=== PATIENT | male | born 1985 | race Hispanic/Latino ===

== ENCOUNTER 2020-10-31 09:23 | Inpatient (IN) | payer OTHER, SELFPAY ==
[2020-10-31] MEDS ORDERED: Iopamidol-370 76% 500 ML 1 ML ONE (09:31)
[2020-10-31] MEDS ORDERED: Albuterol 200 PUFF (6.7GM INHALER) ONE (09:49)
[2020-10-31] MEDS ORDERED: Dexamethasone 10 MG/ML VIAL ONE (09:49)
[2020-10-31 09:58] LABS: #Lymphocytes 1.3 thou/uL (1.20-3.40); #Monocytes 0.6 thou/uL (0.11-0.59); #Neutrophils 4.1 thou/uL (1.40-6.50); %Eosinophils 0.4 % (0.0-10.0); %Lymphocytes 21.6 % (21.0-51.0); %Monocytes 9.6 % (0.0-10.0); %Neutrophils 68.3 % (42.0-75.0); Hemoglobin 15.6 g/dL (14.0-18.0); Mean Corpuscular HGB CONC 35.1 g/dL (32.0-36.0); Mean Corpuscular Hemoglobin 32.1 pg (27.0-31.0); Mean Corpuscular Volume 91.5 fL (78.0-98.0); Mean Platelet Volume 8.8 fL (7.4-10.4); Platelet Count 176 thou/uL (130-400); RBC Distribution Width 11.7 % (11.5-14.5); Red Blood Cell (RBC) Count 4.87 mill/uL (4.70-6.10)
[2020-10-31 10:20] LABS: ALT (SGPT) 61 U/L (8-55); AST (SGOT) 74 U/L (5-34); Albumin 4.1 g/dL (3.5-5.0); Alkaline Phosphatase 100 U/L (40-110); Anion Gap 17 mmol/L (10-20); BUN (Urea Nitrogen) 15 mg/dL (8.9-20.6); Bilirubin, Total 1.6 mg/dL (0.2-1.2); Calc. Creatinine Clearance 0 mL/min (70-130); Calcium 9.6 mg/dL (7.8-10.44); Carbon Dioxide 25 mmol/L (22-29); Chloride 94 mmol/L (98-107); Globulin 4.1 g/dL (2.4-3.5); Glucose 256 mg/dL (70-105); Magnesium 2.1 mg/dL (1.6-2.6); Potassium 3.9 mmol/L (3.5-5.1); Protein, Total 8.2 g/dL (6.0-8.3); Sodium 132 mmol/L (136-145)
[2020-10-31] MEDS ORDERED: Enoxaparin Sodium 40 MG/0.4 ML SYRINGE ONE (12:08)
[2020-10-31 14:38] VITALS: BMI 28.1
[2020-10-31] MEDS ORDERED: Ondansetron ODT 4 MG TAB PO PRN (18:00)
[2020-10-31] MEDS ORDERED: Ondansetron PF 4 MG/2 ML Vial IVP PRN (18:00)
[2020-10-31] MEDS ORDERED: REMDESIVIR 200 MG in Sodium Chloride 0.9% 250 ML 210 ML IV SCH (21:00)
[2020-10-31] MEDS: Guaifenesin DM 100-10/5 ML UDCUP PO PRN (21:59)
[2020-10-31] MEDS: Benzonatate 100 MG CAP PO PRN (21:59)
[2020-11-01] MEDS: Guaifenesin DM 100-10/5 ML UDCUP PO PRN ×2 (05:23→22:11)
[2020-11-01] MEDS: Acetaminophen 325 MG TAB PO PRN ×2 (05:33→23:25)
[2020-11-01 06:16] LABS: #Monocytes 0.8 thou/uL (0.11-0.59); #Neutrophils 7.4 thou/uL (1.40-6.50); %Eosinophils 0.5 % (0.0-10.0); %Lymphocytes 11.2 % (21.0-51.0); %Monocytes 8.9 % (0.0-10.0); %Neutrophils 79.4 % (42.0-75.0); Hemoglobin 14.9 g/dL (14.0-18.0); Mean Corpuscular HGB CONC 34.4 g/dL (32.0-36.0); Mean Corpuscular Hemoglobin 31.4 pg (27.0-31.0); Mean Corpuscular Volume 91.5 fL (78.0-98.0); Mean Platelet Volume 8.5 fL (7.4-10.4); Platelet Count 238 thou/uL (130-400); RBC Distribution Width 11.9 % (11.5-14.5); Red Blood Cell (RBC) Count 4.73 mill/uL (4.70-6.10); White Blood Cell (WBC) Count 9.3 thou/uL (4.8-10.8)
[2020-11-01 06:19] LABS: Hemoglobin A1c 8.7 % (4.0-6.0)
[2020-11-01 06:35] LABS: Anion Gap 19 mmol/L (10-20); BUN (Urea Nitrogen) 17 mg/dL (8.9-20.6); Calc. Creatinine Clearance 146 mL/min (70-130); Calcium 9.3 mg/dL (7.8-10.44); Carbon Dioxide 17 mmol/L (22-29); Chloride 100 mmol/L (98-107); Glucose 270 mg/dL (70-105); Potassium 4.5 mmol/L (3.5-5.1); Sodium 131 mmol/L (136-145)
[2020-11-01] MEDS: Enoxaparin Sodium 40 MG/0.4 ML SYRINGE SC SCH (08:07)
[2020-11-01] MEDS ORDERED: Dexamethasone 10 MG in Sodium Chloride 0.9% 50 ML IVPB SCH (09:00)
[2020-11-01] MEDS: methylPREDNISolone Sod Succ/PF 110 MG in Sodium Chloride 0.9% 250 ML 250 ML IVPB SCH ×2 (09:47→12:38)
[2020-11-01] MEDS ORDERED: Sodium Chloride 0.9% 1,000 ML IV SCH (14:00)
[2020-11-01 14:17] LABS: #Lymphocytes 0.8 thou/uL (1.20-3.40); #Monocytes 0.8 thou/uL (0.11-0.59); #Neutrophils 10.3 thou/uL (1.40-6.50); %Basophils 0.1 % (0.0-1.0); %Eosinophils 0.3 % (0.0-10.0); %Lymphocytes 6.3 % (21.0-51.0); %Monocytes 6.7 % (0.0-10.0); %Neutrophils 86.6 % (42.0-75.0); Mean Corpuscular HGB CONC 35.5 g/dL (32.0-36.0); Mean Corpuscular Hemoglobin 32.6 pg (27.0-31.0); Mean Corpuscular Volume 91.7 fL (78.0-98.0); Mean Platelet Volume 8.4 fL (7.4-10.4); Platelet Count 267 thou/uL (130-400); RBC Distribution Width 11.9 % (11.5-14.5); White Blood Cell (WBC) Count 11.9 thou/uL (4.8-10.8)
[2020-11-01] MEDS ORDERED: Dextrose 5% in Water 1,000 ML IV PRN (15:55)
[2020-11-01] MEDS ORDERED: Dextrose 50% Abboject 50 ML SYRINGE SLOW IVP PRN (15:55)
[2020-11-01] MEDS ORDERED: Insulin Regular 300 UNITS/3 ML VIAL SC SCH (16:00)
[2020-11-01] MEDS: REMDESIVIR 100 MG in Sodium Chloride 0.9% 250 ML 230 ML IV SCH (20:19)
[2020-11-01] MEDS: Colchicine 0.6 MG TAB PO SCH (20:19)
[2020-11-01] MEDS: Doxycycline 100 MG CAP PO SCH (20:19)
[2020-11-01] MEDS: HumuLIN 70/30 (300 UNITS/3 ML VIAL) SC SCH (20:22)
[2020-11-02] MEDS: HumaLOG 300 UNITS/3 ML VIAL SC PRN ×3 (05:56→21:07)
[2020-11-02 06:09] LABS: ALT (SGPT) 46 U/L (8-55); AST (SGOT) 42 U/L (5-34); Albumin 3.3 g/dL (3.5-5.0); Alkaline Phosphatase 87 U/L (40-110); Anion Gap 13 mmol/L (10-20); BUN (Urea Nitrogen) 23 mg/dL (8.9-20.6); Bilirubin, Direct 0.7 mg/dL (0.1-0.3); Bilirubin, Total 1.6 mg/dL (0.2-1.2); Calc. Creatinine Clearance 181 mL/min (70-130); Calcium 9.1 mg/dL (7.8-10.44); Carbon Dioxide 19 mmol/L (22-29); Chloride 104 mmol/L (98-107); Glucose 294 mg/dL (70-105); Potassium 4.2 mmol/L (3.5-5.1); Sodium 132 mmol/L (136-145)
[2020-11-02] MEDS: Enoxaparin Sodium 40 MG/0.4 ML SYRINGE SC SCH (08:46)
[2020-11-02] MEDS: Thiamine 100 MG TAB PO SCH (08:46)
[2020-11-02] MEDS: Ivermectin 3 MG TAB PO SCH (08:46)
[2020-11-02] MEDS: Doxycycline 100 MG CAP PO SCH ×2 (08:46→21:08)
[2020-11-02] MEDS: HumuLIN 70/30 (300 UNITS/3 ML VIAL) SC SCH ×2 (08:47→21:06)
[2020-11-02] MEDS: Colchicine 0.6 MG TAB PO SCH ×2 (08:47→21:08)
[2020-11-02] MEDS: Benzonatate 100 MG CAP PO PRN ×2 (10:34→18:31)
[2020-11-02] MEDS: methylPREDNISolone Sod Succ/PF 110 MG in Sodium Chloride 0.9% 250 ML 250 ML IVPB SCH (13:50)
[2020-11-02] MEDS: metFORMIN 500 MG TAB PO SCH (17:14)
[2020-11-02] MEDS: REMDESIVIR 100 MG in Sodium Chloride 0.9% 250 ML 230 ML IV SCH (21:08)
[2020-11-02] MEDS: Guaifenesin DM 100-10/5 ML UDCUP PO PRN (21:14)
[2020-11-03] MEDS: Acetaminophen 325 MG TAB PO PRN (04:50)
[2020-11-03] MEDS: Guaifenesin DM 100-10/5 ML UDCUP PO PRN ×2 (04:59→11:35)
[2020-11-03] MEDS: HumaLOG 300 UNITS/3 ML VIAL SC PRN ×3 (06:06→20:23)
[2020-11-03] MEDS: Doxycycline 100 MG CAP PO SCH ×2 (09:37→19:54)
[2020-11-03] MEDS: metFORMIN 500 MG TAB PO SCH ×2 (09:37→16:23)
[2020-11-03] MEDS: Colchicine 0.6 MG TAB PO SCH ×2 (09:38→19:54)
[2020-11-03] MEDS: Enoxaparin Sodium 40 MG/0.4 ML SYRINGE SC SCH ×2 (09:38→19:54)
[2020-11-03] MEDS: Thiamine 100 MG TAB PO SCH (09:38)
[2020-11-03] MEDS: Ivermectin 3 MG TAB PO SCH (09:38)
[2020-11-03] MEDS: HumuLIN 70/30 (300 UNITS/3 ML VIAL) SC SCH ×2 (09:39→19:55)
[2020-11-03] MEDS: methylPREDNISolone Sod Succ/PF 110 MG in Sodium Chloride 0.9% 250 ML 250 ML IVPB SCH (11:36)
[2020-11-03] MEDS: Benzonatate 100 MG CAP PO PRN (16:23)
[2020-11-03] MEDS: REMDESIVIR 100 MG in Sodium Chloride 0.9% 250 ML 230 ML IV SCH (20:28)
[2020-11-04] MEDS: HumaLOG 300 UNITS/3 ML VIAL SC PRN ×4 (06:25→20:45)
[2020-11-04] MEDS: metFORMIN 500 MG TAB PO SCH ×2 (09:09→16:43)
[2020-11-04] MEDS: Thiamine 100 MG TAB PO SCH (09:09)
[2020-11-04] MEDS: Colchicine 0.6 MG TAB PO SCH ×2 (09:09→20:44)
[2020-11-04] MEDS: Doxycycline 100 MG CAP PO SCH ×2 (09:09→20:44)
[2020-11-04] MEDS: Enoxaparin Sodium 40 MG/0.4 ML SYRINGE SC SCH ×2 (09:09→20:44)
[2020-11-04] MEDS: methylPREDNISolone Sod Succ/PF 110 MG in Sodium Chloride 0.9% 250 ML 250 ML IVPB SCH (09:10)
[2020-11-04] MEDS: HumuLIN 70/30 (300 UNITS/3 ML VIAL) SC SCH ×2 (09:12→20:46)
[2020-11-04] MEDS: Ivermectin 3 MG TAB PO SCH (09:12)
[2020-11-04] MEDS: Guaifenesin DM 100-10/5 ML UDCUP PO PRN ×3 (09:21→20:44)
[2020-11-04 14:50] LABS: ALT (SGPT) 31 U/L (8-55); AST (SGOT) 20 U/L (5-34); Albumin 3.4 g/dL (3.5-5.0); Alkaline Phosphatase 99 U/L (40-110); Bilirubin, Direct 0.8 mg/dL (0.1-0.3); Bilirubin, Total 2.1 mg/dL (0.2-1.2); CRP (Inflammatory) 3.03 mg/dL (= or < 0.5); Protein, Total 6.5 g/dL (6.0-8.3)
[2020-11-04] MEDS: Benzonatate 100 MG CAP PO PRN (16:43)
[2020-11-04] MEDS: REMDESIVIR 100 MG in Sodium Chloride 0.9% 250 ML 230 ML IV SCH (20:43)
[2020-11-04] MEDS: Acetaminophen 325 MG TAB PO PRN (20:44)
[2020-11-05] MEDS: Acetaminophen 325 MG TAB PO PRN (01:01)
[2020-11-05] MEDS: Guaifenesin DM 100-10/5 ML UDCUP PO PRN ×3 (01:01→21:02)
[2020-11-05] MEDS: HumaLOG 300 UNITS/3 ML VIAL SC PRN ×4 (05:17→21:03)
[2020-11-05] MEDS: Ivermectin 3 MG TAB PO SCH (08:49)
[2020-11-05] MEDS: Doxycycline 100 MG CAP PO SCH (08:49)
[2020-11-05] MEDS: Colchicine 0.6 MG TAB PO SCH ×2 (08:49→21:02)
[2020-11-05] MEDS: metFORMIN 500 MG TAB PO SCH ×2 (08:49→17:10)
[2020-11-05] MEDS: Thiamine 100 MG TAB PO SCH (08:49)
[2020-11-05] MEDS: methylPREDNISolone Sod Succ/PF 110 MG in Sodium Chloride 0.9% 250 ML 250 ML IVPB SCH (08:50)
[2020-11-05] MEDS: HumuLIN 70/30 (300 UNITS/3 ML VIAL) SC SCH ×2 (08:50→21:02)
[2020-11-05] MEDS: Enoxaparin Sodium 40 MG/0.4 ML SYRINGE SC SCH ×2 (08:50→21:02)
[2020-11-05] MEDS ORDERED: Sodium Chloride 0.9% 250 ML IV SCH (16:00)
[2020-11-05] MEDS: Benzonatate 100 MG CAP PO PRN (18:39)
[2020-11-06] MEDS: HumaLOG 300 UNITS/3 ML VIAL SC PRN ×2 (06:51→16:56)
[2020-11-06] MEDS: Colchicine 0.6 MG TAB PO SCH ×2 (08:30→20:20)
[2020-11-06] MEDS: Thiamine 100 MG TAB PO SCH (08:30)
[2020-11-06] MEDS: metFORMIN 500 MG TAB PO SCH ×2 (08:30→16:56)
[2020-11-06] MEDS: Enoxaparin Sodium 40 MG/0.4 ML SYRINGE SC SCH ×2 (08:31→20:19)
[2020-11-06] MEDS: methylPREDNISolone Sod Succ/PF 110 MG in Sodium Chloride 0.9% 250 ML 250 ML IVPB SCH (08:31)
[2020-11-06] MEDS: HumuLIN 70/30 (300 UNITS/3 ML VIAL) SC SCH ×2 (08:33→20:21)
[2020-11-06] MEDS: Guaifenesin DM 100-10/5 ML UDCUP PO PRN ×2 (14:01→22:14)
[2020-11-07] MEDS: HumaLOG 300 UNITS/3 ML VIAL SC PRN ×3 (05:01→21:50)
[2020-11-07] MEDS: Colchicine 0.6 MG TAB PO SCH ×2 (08:43→21:49)
[2020-11-07] MEDS: metFORMIN 500 MG TAB PO SCH ×2 (08:56→18:01)
[2020-11-07] MEDS: Enoxaparin Sodium 40 MG/0.4 ML SYRINGE SC SCH ×2 (08:56→21:49)
[2020-11-07] MEDS: Thiamine 100 MG TAB PO SCH (08:56)
[2020-11-07] MEDS: Dexamethasone 10 MG/ML VIAL SLOW IVP SCH (08:57)
[2020-11-07] MEDS: HumuLIN 70/30 (300 UNITS/3 ML VIAL) SC SCH ×2 (08:57→21:50)
[2020-11-07] MEDS: Acetaminophen 325 MG TAB PO PRN (22:26)
[2020-11-07] MEDS: Benzonatate 100 MG CAP PO PRN (22:27)
[2020-11-08] MEDS: metFORMIN 500 MG TAB PO SCH ×2 (08:52→18:11)
[2020-11-08] MEDS: Thiamine 100 MG TAB PO SCH (08:52)
[2020-11-08] MEDS: Colchicine 0.6 MG TAB PO SCH ×2 (08:52→20:46)
[2020-11-08] MEDS: Enoxaparin Sodium 40 MG/0.4 ML SYRINGE SC SCH ×2 (08:53→20:46)
[2020-11-08] MEDS: HumuLIN 70/30 (300 UNITS/3 ML VIAL) SC SCH ×2 (08:53→20:47)
[2020-11-08] MEDS: Dexamethasone 10 MG/ML VIAL SLOW IVP SCH (08:55)
[2020-11-08] MEDS ORDERED: guaiFENesin/Codeine 200 mg/20 mg 10 ml Cup PO SCH (10:30)
[2020-11-08] MEDS: HumaLOG 300 UNITS/3 ML VIAL SC PRN ×3 (13:25→22:03)
[2020-11-08] MEDS: Melatonin 3 MG TAB PO PRN (20:46)
[2020-11-08] MEDS ORDERED: Dextrose 5% in Water 1,000 ML IV PRN (21:40)
[2020-11-08] MEDS ORDERED: Dextrose 50% Abboject 50 ML SYRINGE SLOW IVP PRN (21:40)
[2020-11-08] MEDS ORDERED: GUAIFENESIN DM SF 5 ML UDCUP PO PRN (23:48)
[2020-11-09 06:11] LABS: #Eosinphils 0.1 thou/uL (0.0-0.7); #Lymphocytes 1.6 thou/uL (1.20-3.40); #Monocytes 0.8 thou/uL (0.11-0.59); #Neutrophils 6.8 thou/uL (1.40-6.50); %Basophils 0.1 % (0.0-1.0); %Lymphocytes 16.7 % (21.0-51.0); %Monocytes 8.7 % (0.0-10.0); %Neutrophils 73.6 % (42.0-75.0); Hemoglobin 13.2 g/dL (14.0-18.0); Mean Corpuscular HGB CONC 33.4 g/dL (32.0-36.0); Mean Corpuscular Hemoglobin 31.8 pg (27.0-31.0); Mean Corpuscular Volume 95.2 fL (78.0-98.0); Mean Platelet Volume 7.9 fL (7.4-10.4); Platelet Count 305 thou/uL (130-400); RBC Distribution Width 13.3 % (11.5-14.5); Red Blood Cell (RBC) Count 4.14 mill/uL (4.70-6.10); White Blood Cell (WBC) Count 9.3 thou/uL (4.8-10.8)
[2020-11-09 06:35] LABS: Anion Gap 10 mmol/L (10-20); BUN (Urea Nitrogen) 22 mg/dL (8.9-20.6); CRP (Inflammatory) Less than 0.50 mg/dL (= or < 0.5); Calc. Creatinine Clearance 211 mL/min (70-130); Calcium 8.5 mg/dL (7.8-10.44); Carbon Dioxide 30 mmol/L (22-29); Chloride 98 mmol/L (98-107); Glucose 185 mg/dL (70-105); Potassium 3.8 mmol/L (3.5-5.1); Sodium 134 mmol/L (136-145)
[2020-11-09] MEDS: Thiamine 100 MG TAB PO SCH (08:59)
[2020-11-09] MEDS: metFORMIN 500 MG TAB PO SCH ×2 (08:59→16:55)
[2020-11-09] MEDS: Dexamethasone 10 MG/ML VIAL SLOW IVP SCH (08:59)
[2020-11-09] MEDS: Colchicine 0.6 MG TAB PO SCH ×2 (08:59→21:58)
[2020-11-09] MEDS: HumuLIN 70/30 (300 UNITS/3 ML VIAL) SC SCH ×2 (09:02→21:59)
[2020-11-09] MEDS: Enoxaparin Sodium 40 MG/0.4 ML SYRINGE SC SCH ×2 (09:03→21:58)
[2020-11-09] MEDS: HumaLOG 300 UNITS/3 ML VIAL SC PRN ×3 (13:58→22:00)
[2020-11-09] MEDS: Melatonin 3 MG TAB PO PRN (21:58)
[2020-11-09] MEDS: Acetaminophen 325 MG TAB PO PRN (22:26)
[2020-11-10] MEDS: HumaLOG 300 UNITS/3 ML VIAL SC PRN (05:20)
[2020-11-10] MEDS: Benzonatate 100 MG CAP PO PRN (05:21)
[2020-11-10] MEDS ORDERED: predniSONE 20 MG TAB PO SCH (09:00)
[2020-11-10] MEDS: Thiamine 100 MG TAB PO SCH (10:06)
[2020-11-10] MEDS: metFORMIN 500 MG TAB PO SCH (10:07)
[2020-11-10] MEDS: Enoxaparin Sodium 40 MG/0.4 ML SYRINGE SC SCH (10:07)
[2020-11-10] MEDS: HumuLIN 70/30 (300 UNITS/3 ML VIAL) SC SCH (10:16)
[2020-11-10 16:25] VITALS: BP 159/80; TEMP 98.6
[2020-11-11] MEDS ORDERED: predniSONE 20 MG TAB PO SCH (08:00)
== END 2020-11-10 16:48 | disposition home or self-care (01) | DRG 177 ==
LOC: ERS 09:23 → T4-B 12:29
PROVIDERS: ADMIT Internal Medicine; ATTEND Family Medicine
PROC: XW033E5 Introduction of Remdesivir Anti-infective into Peripheral Vein, Percutaneous Approach, New Technology Group 5 (ICD-10-PCS; principal; 2020-10-31)
PROC: 8E0ZXY6 Isolation (ICD-10-PCS; 2020-10-31)
DX: U07.1 COVID-19 (principal); J12.82 Pneumonia due to coronavirus disease 2019; J96.01 Acute respiratory failure with hypoxia; E87.2 Acidosis; E87.1 Hypo-osmolality and hyponatremia; E11.65 Type 2 diabetes mellitus with hyperglycemia; R74.01 Elevation of levels of liver transaminase levels; T38.0X5A Adverse effect of glucocorticoids and synthetic analogues, initial encounter; E80.6 Other disorders of bilirubin metabolism
CPT/HCPCS: 36415; 36416; 71045; 71275; 80048; 80053; 80076; 82728; 83036; 83605; 83735; 83880; 84484; 85025; 85379; 86140; 87040; 93005; 94760; 96372; 96374; J1100; J1650; J1815; J2930; J3490; J7050; J7512; Q9967